=== PATIENT | female | born 1985 | race Caucasian/White ===

== ENCOUNTER → 2019-07-06 09:09 | Outpatient (CLI) | payer OTHER, SELFPAY | PROVIDERS: Family Provider Naturopath; PCP Naturopath; Visit Provider Physician Assistant | DX: N39.0 Urinary tract infection, site not specified (principal) | CPT/HCPCS: 87077; 87086; 87186 ==

== ENCOUNTER → 2022-01-03 13:02 | Outpatient (ROUT) | payer OTHER, SELFPAY ==
[2022-01-04 18:04] LABS: Candida species Positive (Negative); Gardnerella vaginalis Negative (Negative); Trichomoas vaginalis Negative (Negative)
== END ==
PROVIDERS: Family Provider Naturopath; PCP Naturopath; Visit Provider Obstetrics & Gynecology
DX: N76.0 Acute vaginitis (principal)
CPT/HCPCS: 87480; 87510; 87660